=== PATIENT | female | born 1935 | race Caucasian/White ===

== ENCOUNTER → 2018-10-02 08:31 | Outpatient (CLI) | payer MEDICARE, OTHER ==
[2018-10-04 03:11] LABS: ANGIOTENSIN CONVERTING ENZYME 34 U/L (14-82)
[2018-10-06 17:07] LABS: FUNGAL - ASP FLAVUS Negative (Neg:<1:1); FUNGAL - ASP NIGER Negative (Neg:<1:1); FUNGAL - ASPER FUMIGATUS Negative (Neg:<1:1)
== END | disposition home or self-care (01) ==
LOC: D.LAB 08:30 → D.RT 09:00
PROVIDERS: ATTEND Internal Medicine Pulmonary Disease
DX: R05 Cough (principal)

== ENCOUNTER → 2019-01-15 07:21 | Outpatient (CLI) | payer MEDICARE, OTHER | END | disposition home or self-care (01) | LOC: D.RT 07:21 | PROVIDERS: ATTEND Internal Medicine Pulmonary Disease | DX: K21.9 Gastro-esophageal reflux disease without esophagitis (principal) ==

== ENCOUNTER → 2019-05-24 07:55 | Outpatient (CLI) | payer MEDICARE, OTHER | END | disposition home or self-care (01) | LOC: D.RT 07:55 → D.CT 10:00 | PROVIDERS: ATTEND Internal Medicine Pulmonary Disease | DX: K21.9 Gastro-esophageal reflux disease without esophagitis (principal); R91.1 Solitary pulmonary nodule ==

== ENCOUNTER → 2019-06-27 08:58 | Outpatient (CLI) | payer MEDICARE, OTHER ==
--- NOTE | 2019-06-28 13:04 | EC ---
PATIENT:MURRAY JAUREGUI DATE OF SERVICE: 06/27/19 SEX: F MEDICAL RECORD: [id number] DATE OF : 35 [facility] AGE OF PATIENT: 83 ADMISSION DATE: 06/27/19 REFERRING PHYSICIAN: INTERPRETING PHYSICIAN: JEWEL ALONSO MD ECHOCARDIOGRAM REPORT ECHO CHARGES 4 ECHO COMPLETE Date: 06/27/19 CLINICAL DIAGNOSIS: H/O CAD/A-FIB/HTN ECHOCARDIOGRAPHIC MEASUREMENTS (adult normal given) AC root (d.<3.7cm) 2.9 cm LV Septum d (<1.2 cm> 1.7 cm Valve Excursion 1.6 cm LV Septum (systole) 2.0 cm Left Atria (s.<4.0cm> 3.9 cm LVPW d(<1.2cm) 1.4 cm RV (d.<2.3cm) 3.2 cm LVPW (sytole) 1.9 cm LV diastole(<5.6CM) 4.9 cm MV E-F(>70mm/sec) cm LV systole 3.0 cm LVOT Diameter 1.6 cm MV exc.(>10mm) cm Est.ejection fraction (50-75%) % DOPPLER: LVIT cm/sec A 161 cm/sec E 91.0 cm/sec LA cm/sec RVSP 36.0 mmHg LVOT 106 cm/sec AOP1/2T m/s Asc. Ao 166 cm/sec RVOT 63.0 cm/sec RA cm/sec PA 104 cm/sec AV Gradient Peak 11.0 mmHg AV Mean 5.7 mmHg AV Area 1.4 cm MV Gradient Peak 9.2 mmHg MV Mean 3.0 mmHg MV Area cm COMMENTS: OP - HC Insurance Healthcare Representative: Chandler GRACIA LINDSEY Irrigation Service Technician: 3 Dr. Hanks TAPE# PACS Pericardial Effusion N DATE OF SERVICE: Adequate 2D, color flow imaging, spectral Doppler, and M-Mode. LVH is present. LV internal dimension is normal. Wall motion is normal. EF is greater than or equal to 55%. Aortic valve is sclerotic. No evidence of stenosis by Doppler interrogation. The left atrium is normal. Mitral valve shows no prolapse. Trace MR. Right-sided chambers are grossly normal. Trace TR. ECHOCARDIOGRAM REPORT [id number] MURRAY JAUREGUI TRANSINT:[id number] Voice Confirmation ID: [id number] DOCUMENT ID: [id number] JEWEL ALONSO MD at 1304 CC: [id number] DICTATION DATE: 06/27/19 1506 SOLID WASTE COLLECTOR: 06/28/19 0005 DEP CLI 06/27/19 [id number] [place] [address]
== END | disposition home or self-care (01) ==
LOC: D.HCCECHO 08:58
PROVIDERS: ATTEND Internal Medicine Interventional Cardiology
DX: I10 Essential (primary) hypertension (principal)

== ENCOUNTER → 2020-02-03 09:17 | Outpatient (CLI) | payer MEDICARE, OTHER | END | disposition home or self-care (01) | LOC: D.CT 11-25 09:30 | PROVIDERS: ATTEND Internal Medicine Pulmonary Disease | DX: R91.1 Solitary pulmonary nodule (principal) ==